=== PATIENT | female | born 1955 | race Caucasian/White ===

== ENCOUNTER 2017-07-25 04:42 | Observation (INO) | payer OTHER ==
[~2017-07-25] VITALS: Ht 162.6 cm; Wt 101.6 kg
[2017-07-25 05:31] LABS: AMYLASE 44 IU/L (1-118); CHLORIDE 108 mEq/L (99-109); POTASSIUM 3.9 mEq/L (3.7-5.4); SODIUM 142 mEq/L (136-147)
[2017-07-25 05:33] LABS: GLUCOSE 123 mg/dL (70-99)
[2017-07-25 05:34] LABS: ANION GAP 9 MEQ/L (2-14); BASOPHIL COUNT 0.1 K/uL (0-0.1); EOSINOPHIL (%) 0 % (0-5); IMMATURE GRANULOCYTE (%) 1.1 % (0.0-0.7); IMMATURE GRANULOCYTE COUNT 0.1 K/uL; INSTRUMENT ABS NEUTROPHIL CT 4.7 K/uL; MCH 29.6 PG (29.0-34.0); MCHC 32.4 G/DL (30.0-36.0); MCV 91.3 FL (83-99); MONOCYTE (%) 7.4 % (3-12); MONOCYTE COUNT 0.6 K/uL (0-0.8); NEUTROPHIL (%) 63.6 % (45-76); NEUTROPHIL COUNT 4.7 K/uL (1.8-6.4); PLATELET COUNT 229 K/uL (156-360); RED BLOOD COUNT 4.16 M/uL (3.80-5.20); WHITE BLOOD COUNT 7.5 K/uL (4.1-10.2)
[2017-07-25 05:36] LABS: SERUM ETHYL ALCOHOL < 10 mg/dL
[2017-07-25 05:38] LABS: UREA NITROGEN (BUN) 15 mg/dL (9-23)
[2017-07-25 05:40] LABS: LIPASE 40 U/L (1.0-51.0)
[2017-07-25 05:56] LABS: ADD MIUA? YES; BILIRUBIN NEGATIVE; BLOOD SMALL; COLOR YELLOW ((YELLOW)); GLUCOSE (STRIP) NEGATIVE; KETONES NEGATIVE; LEUKOCYTES NEGATIVE; NITRITE NEGATIVE; PROTEIN (STRIP) 100; SPECIFIC GRAVITY 1.031 (1.000-1.030); UROBILINOGEN 0.2 MG/DL (0.2-1.0)
[2017-07-25 06:02] LABS: BACTERIA NONE SEEN /HPF; EPITHELIAL CELLS RARE /HPF; MUCUS TRACE /LPF; RED BLOOD CELLS 0-5 /HPF (0-5); UCUL ADDED? YES
[2017-07-25 06:04] LABS: GFR ESTIMATE (CALCULATED) > 59 mL/min/
[2017-07-25 06:12] LABS: AMPHETAMINE NEGATIVE (500 ng/mL); BARBITURATES NEGATIVE (200 ng/mL); BENZODIAZEPINES NEGATIVE (150 ng/mL); COCAINE NEGATIVE (150 ng/mL); INTERNAL CONTROLS VALID? YES; METHADONE NEGATIVE (200 ng/mL); METHAMPHETAMINE NEGATIVE (500 ng/mL); OPIATES (MORPHINE) NEGATIVE (100 ng/mL); OXYCODONE NEGATIVE (100 ng/mL); PHENCYCLIDINE NEGATIVE (25 ng/mL); PROPOXYPHENE NEGATIVE (300 ng/mL); THC CANNABINOIDS NEGATIVE (50 ng/mL); TRICYCLIC ANTIDEPRESSANTS NEGATIVE (300 ng/mL)
[2017-07-25 06:35] LABS: TROP-I INTERPRETATION NEGATIVE; TROPONIN-I 0.03 ng/mL (0.0-0.30)
[2017-07-25 08:26] VITALS: BP 155/68
[2017-07-25 11:40] VITALS: BP 152/68
[2017-07-25] MEDS ORDERED: TAGAMET300 MG PO (13:55)
[2017-07-25] MEDS ORDERED: LISINOPRIL20 MG PO (13:55)
[2017-07-25] MEDS ORDERED: LEXAPRO10 MG PO (13:56)
[2017-07-25] MEDS ORDERED: ATORVASTATIN CA80 MG PO (13:56)
[2017-07-25] MEDS ORDERED: FISH OIL 1,0001 EAC7 PO (13:57)
[2017-07-25] MEDS ORDERED: LITE COAT ASPI325 M1 PO (13:57)
[2017-07-25] MEDS ORDERED: VITAMIN D33000 UNIT PO (13:57)
[2017-07-25 16:42] VITALS: BP 149/65
[2017-07-25 23:19] VITALS: BP 128/71
[2017-07-26] VITALS (7 sets, daily range): BP systolic 107–141; BP diastolic 56–65
[2017-07-27 03:35] VITALS: BP 167/87
[2017-07-27 07:14] LABS: EOSINOPHIL (%) 0 % (0-5); HEMATOCRIT 31.7 % (36.0-46.0); IMMATURE GRANULOCYTE (%) 0.3 % (0.0-0.7); INSTRUMENT ABS NEUTROPHIL CT 4.9 K/uL; LYMPHOCYTE COUNT 1.4 K/uL (1.0-2.8); MCH 29.4 PG (29.0-34.0); MCHC 31.9 G/DL (30.0-36.0); MCV 92.4 FL (83-99); MEAN PLAT.VOLUME 9.6 uM^3 (9.5-12.4); MONOCYTE (%) 8.9 % (3-12); MONOCYTE COUNT 0.6 K/uL (0-0.8); NEUTROPHIL (%) 70.8 % (45-76); NEUTROPHIL COUNT 4.9 K/uL (1.8-6.4); PLATELET COUNT 189 K/uL (156-360); RBC DIS.WIDTH-SD 44.1 % (39-53); RED BLOOD COUNT 3.43 M/uL (3.80-5.20); WHITE BLOOD COUNT 6.9 K/uL (4.1-10.2)
[2017-07-27 07:23] LABS: ALKALINE PHOSPHATASE 58 IU/L (3-129); ANION GAP 7 MEQ/L (2-14); CHLORIDE 105 MEQ/L (99-109); GFR ESTIMATE (CALCULATED) > 59 mL/min/; GLUCOSE 106 mg/dL (70-99); SAMPLE HEMOLYSIS CHECK 0; SAMPLE ICTERIC CHECK 0; SAMPLE LIPEMIA CHECK 0; SODIUM 140 MEQ/L (136-147); TOTAL BILIRUBIN 0.6 MG/DL (0.0-1.0); UREA NITROGEN (BUN) 8 mg/dL (9-23)
[2017-07-27 07:48] VITALS: BP 164/73
[2017-07-27 11:33] VITALS: BP 126/60
[2017-07-27 15:42] VITALS: BP 135/62
[2017-07-27 20:08] VITALS: BP 138/64
[2017-07-28] VITALS (7 sets, daily range): BP systolic 127–182; BP diastolic 61–88
[2017-07-29 02:42] VITALS: BP 137/62
[2017-07-29 08:22] VITALS: BP 139/63
[2017-07-29] MEDS ORDERED: PERCOCET 5/31 TABLET PO (10:12)
[2017-07-29 11:59] VITALS: BP 133/63
[2017-07-29 16:29] VITALS: BP 134/60
== END 2017-07-29 18:10 | disposition home or self-care (01) ==
LOC: TRA 04:42 → 3EAST 05:50 → EDOF 05:50 → ENRESERV 06:12 → 3EAST 07:55
PROVIDERS: Physician Assistant; Surgery
DX: S22.41XA Multiple fractures of ribs, right side, initial encounter for closed fracture (principal); S22.23XA Sternal manubrial dissociation, initial encounter for closed fracture; S27.0XXA Traumatic pneumothorax, initial encounter; G89.11 Acute pain due to trauma; V49.9XXA Car occupant (driver) (passenger) injured in unspecified traffic accident, initial encounter; K80.20 Calculus of gallbladder without cholecystitis without obstruction; Z91.018 Allergy to other foods; E66.9 Obesity, unspecified; Z68.38 Body mass index [BMI] 38.0-38.9, adult; Z86.73 Personal history of transient ischemic attack (TIA), and cerebral infarction without residual deficits; I10 Essential (primary) hypertension; E78.5 Hyperlipidemia, unspecified
CPT/HCPCS: 70450; 71010; 71020; 71260; 72125; 72129; 72132; 74177; 80048; 80053; 81003; 82150; 83690; 83735; 84100; 84484; 85025; 86850; 86900; 86901; 87086; 93005; 94010; 94667; 94668; 94799; 99202; 99281; 99285; G0378; G0480; G8978 GP CJ; G8979 GP CH; G8987 GO CI; G8988 GO CH; G8989 GO CI; J1885; J2270; J2405; J3010; J7120